=== PATIENT | female | born 2005 | race Caucasian/White ===

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

== ENCOUNTER 2025-05-20 16:41 | Emergency (ER) | payer BC, SELFPAY ==
--- OUTSIDE RECORDS SUMMARY | 2025-05-20 16:44 | XMS_ITS | Clinical Summary ---
Author Organization [facility] s & [facility] Address Formerly [facility], [facility] [place] [address] Care Team Providers Care Drill Doctor Name Role Phone Mala Stoddard Primary Care Provider [phone] Allergies No known active allergies Medications MedicationSigDispense QuantityRefillsLast FilledStart DateEnd DateStatus Ventolin HFA 90 mcg/actuation inhaler Indications:WheezeINHALE 2 PUFFS BY MOUTH EVERY 4 HOURS IF NEEDED FOR COUGHING SPELLS. 18 g 4Active levonorgestrel-ethinyl estrad (0.1mg-20mcg) (ALESSE-28) 0.1-20 mg-mcg tablet Indications:Evaluation regarding contraception optionsTake 1 Tablet by mouth once daily. To be taken in a continuous fashion; have a period every 3 months. 90 Tablet 5Active ondansetron (ZOFRAN ODT) 4 mg disintegrating tablet Indications:PONV (postoperative nausea and vomiting)Place 1-2 Tablets (4-8 mg) on the tongue every 8 hours if needed for Nausea/Vomiting. 12 Tablet 5Active lidocaine (viscous) 2 % liquid Indications:Postoperative painSwish and spit 15 mL by mouth every 4 hours if needed for Sore Throat. 300 mL 5Active acetaminophen 160 mg/5 mL (32 mg/mL) oral solution Indications:Postoperative painTake 20.3 mL (650 mg) by mouth every 4 hours. Max acetaminophen dose: 4000mg in 24 hrs. 800 mL 5Active ibuprofen (Children's Ibuprofen) 100 mg/5 mL (20 mg/mL) suspension Indications:Postoperative painTake 30 mL (600 mg) by mouth every 6 hours. 800 mL 5Active oxyCODONE 5 mg/5 mL (1 mg/mL) solution Indications:Postoperative painTake 5-10 mL (5-10 mg) by mouth every 4 hours if needed for Pain. 190 mL 5Active oxyCODONE 5 mg/5 mL (1 mg/mL) solution Indications:Postoperative painTAKE 5-10 ML (5-10 MG) BY MOUTH EVERY 4 HOURS IF NEEDED FOR PAIN. 210 mL 5Active levonorgestrel-ethinyl estrad (0.1mg-20mcg) (ALESSE-28) 0.1-20 mg-mcg tablet Indications:Evaluation regarding contraception optionsTake 1 Tablet by mouth once daily. 90 Tablet Discontinued(Reorder (E-cancel not sent)) levonorgestrel-ethinyl estrad (0.1mg-20mcg) (ALESSE-28) 0.1-20 mg-mcg tablet Indications:Evaluation regarding contraception optionsTake 1 Tablet by mouth once daily. 90 Tablet Discontinued(*Medication adjustment) predniSONE (DELTASONE) 10 mg tablet Indications:Postoperative painTake 2 Tablets (20 mg) by mouth once daily with a meal for 5 days, THEN 1 Tablet (10 mg) once dailywith a meal for 5 days. 15 Tablet Expired oxyCODONE 5 mg/5 mL (1 mg/mL) solution Indications:Postoperative painTake 5-10 mL (5-10 mg) by mouth every 4 hours if needed for Pain. 400 mL Discontinued oxyCODONE 5 mg/5 mL (1 mg/mL) solution Indications:Postoperative painTake 5-10 mL (5-10 mg) by mouth every 4 hours if needed for Pain. 190 mL Discontinued(*Error/meal cook error) Active Problems ProblemNoted DateDiagnosed DateCervical cancer dktexhtin39/04/2025 Overview (03/26/2025): 02/2025 NIL Plan: Pap due 02/2028 Tonsillar knnoxnxytaj95/01/8577Ucjefyr03/01/6611Tkyrbz37/01/2022Marijuana use 10/21/2021 Encounters DateTypeDepartmentCare WiamYamcqqfqepp23/29/2025Nurse Triage [facility] [address] [place] [address] [address] Mala Stoddard, DO Post-op05/15/2025Refill [facility] [address] [place] [address] Tej Mendoza MD Refill Request (Oxycodone)05/09/2025 6:25 AM COMPUTER SYSTEMS TECHNICIAN - 05/09/2025 11:59 PM COMPUTER SYSTEMS TECHNICIAN Hospital Encounter Tej Mendoza MD 05/09/2025Telephone [facility] [address] [place] [address] Tej Mendoza MD Medication Ciubhorlej36/18/2025Orders Only [facility] [address] [place] [address] Tej Mendoza MD <No scans attached>05/09/2025Sursierra tucsony [facility] [address] [place] [address] [address] [place] [address] Tej Mendoza MD Tonsillectomy 101598906/25/2024 11:25 AM CSTOffice Visit [facility] [address] [place] [address] [address] Mala Stoddard, DO Preoperative Exam (05/09/25 - [facility] - Tonsillectomy - Dr. Mendoza)04/23/20254744Trnjqk34/27/2025 1:15 PM CDTOffice Visit [facility] [address] [place] [address] [address] Priti Blum MD Physical (STD testing)03/17/2025Travelfrom Last 3 Months Immunizations ImmunizationAdministration DatesNext DueDTaP-HIB (TriHIBIT)08/24/2005 WLiQ-VgdI-KJL (Pediarix)2004,2004,2004HIB HbOC (HibTITER) 08/24/2005,2004HIB PRP-T (ActHIB,Hiberix)2004,2004HPV 9 (Gardasil 9)03/18/2025Hepatitis B (Adult)11/28/2024MMR19238Sdkk42/27/2025, 03/21/2015Varicella Ajjmyll0908/24/2005 Social History Tobacco UseTypesPacks/DayYears UsedDateSmoking Tobacco: FormerCigarettes Smokeless Tobacco: Never Tobacco Cessation:Counseling Given: Not Answered Comments:no exposure to second hand smoke Alcohol UseStandard Drinks/WeekCommentsYes0 (1 standard drink = 0.6 oz pure alcohol)occassionalPHQ-2AnswerDate RecordedPHQ-2 TOTAL CBVQS129Social ConnectionsAnswerDate RecordedDo you often feel lonely or isolated from those around you?lcohol UseAnswerDate RecordedHow often do you have a drink containing alcohol?How many drinks containing alcohol do you have on a typical day when you are drinking?How often do you have five or more drinks on one occasion?Financial Resource StrainAnswer Date RecordedDifficulty of Paying Living Ewpconfq210/26/2025Difficulty of Paying Living ExpensesNot on file03/17/2025Food InsecurityAnswerDate RecordedDo you worry your food will run out before you are able to buy more? Transportation NeedsAnswerDate RecordedDoes lack of transportation keep you from medical appointments?Does lack of transportation keep you from work, meetings or getting things that you need?Housing StabilityAnswerDate RecordedWhat is your housing situation today?UtilitiesAnswerDate RecordedDo you have trouble paying for utilities (for example, heat, electricity, water, phone)?CommentsNoSex and Gender InformationValueDate RecordedSex Assigned at BarxuIdnxml64/12/2024 5:59 PM CDT Legal LzaJuvvmg84/14/2013 7:10 AM CSTGender FohrepgxTxalns88/12/2024 5:59 PM CDT Sexual OrientationNot on file Last Filed Vital Signs Vital SignReadingTime TakenCommentsBlood Gjqwexfc450/7004/24/2025 11:34 AM COMPUTER SYSTEMS TECHNICIAN Fimmh950804/24/2025 11:34 AM EJMOckuokrcsta02.8 ??C (98.3 ??F)12/29/2021 9:28 AM CDTRespiratory Lztc822001/21/2022 8:06 AM CDTOxygen Izyflvxyxq58%04/24/2025 11:34 AM CSTInhaled Oxygen Concentration--Xkajew71.4 kg (150 lb 14.4 oz)04/24/2025 11:34 AM CZHCruydx678 cm (5' 1.81)03/18/2025 1:18 PM CDTBody Mass Index27.77 03/18/2025 1:18 PM CDT Plan of Treatment Health MaintenanceDue DateLast DoneCommentsMeningococcal series for age 11-21 (1 - 2-dose series)2020COVID-19 vaccine series ( season)2025 Influenza Vaccine (#1)2025HPV series for age 9-45 (2 - 3-dose series) 5BMI (ht and wt on same day) for age 18+, 08/05/2022, 06/28/2022, Additional history existsChlamydia for age 16-24 , 12/02/2023, 08/10/2023, Additional history exists Depression screening for age 12+, 06/22/2022, 10/21/2021, Additional history existsPap test for age 21-6581Tetanus vdjxopk52/27/360749, 03/21/2015Hepatitis B series for 19+Completed 11/28/2024, 2004, 2004, Additional history existsHIV for age 15-65 Fmrnypswk21/27/2025, 08/10/2023Hepatitis C screening for age 18-79Completed 03/18/2025Pneumococcal series for age 6-49Aged OutNo longer eligible based on patient's age to complete this topic Procedures Procedure NamePriorityDate/TimeAssociated DiagnosisCommentsANTI HCVRoutine 03/18/2025 1:58 PM CDT Screening examination for STI TREPONEMA NMJAQPCIUosmtrm66/27/2025 1:58 PM CDT Screening examination for STI ANTI HIV 1/9Miuwgqk28/27/2025 1:58 PM CDT Screening examination for STI MIDDLEWARE SYSTEMS ARCHITECT THIN PREP PAP SCREEN MDUSYTSvoerdi49/27/2025 1:40 PM CDT Pap smear for cervical cancer screening GC CHLAMYDIA TRACH HZSZQIzmaqqj93/27/2025 1:40 PM CDT Screening examination for STI SURGICAL PROCEDURE (TYPE PROCEDURE DESCRIPTION BELOW)Elective Tonsillar hypertrophy from Last 3 Months Results * TREPONEMA PALLIDUM (03/18/2025 1:58 PM CDT)ComponentValueRef RangeTest Method Analysis TimePerformed AtPathologist SignatureTREPONEMA PALLIDUMNon-Reactive Non-Dmlepdkg71/27/2025 10:55 PM CDTALLUV[facility] Specimen (Source)Anatomical Location / LateralityCollection Method / Volume Collection TimeReceived TimeBloodBLOOD SPECIMEN / UnknownQuest Collect / Hlujyrg6803/18/2025 1:58 PM CDT1 1:58 PM CDT Narrative Authorizing ProviderResult TypeResult StatusHeidi Martita Blum MDSEND OUTSFinal ResultPerforming OrganizationAddressty/State/ZIP CodePhone Number [facility] [address] [place] [address], * ANTI HCV (03/18/2025 1:58 PM CDT)ComponentValueRef RangeTest MethodAnalysis TimePerformed AtPathologist SignatureHEPATITIS C ANTIBODYNON-REACTIVE NON-KALDFTNI70/28/2025 8:53 PM CDTQUEST DIAGNOSTICSComment: HCV antibody was non-reactive. There is no laboratory evidence of HCV infection. In most cases, no further action is required. However, if recent HCV exposure is suspected, a test for HCV RNA (test code 52197) is suggested. For additional information please refer to http://education.[employer]/faq/BQS29y1 (This link is being provided for informational/ educational purposes only.) Specimen (Source)Anatomical Location / LateralityCollection Method / Volume Collection TimeReceived TimeBloodBLOOD SPECIMEN / UnknownQuest Collect / Unknown 03/18/2025 1:58 PM CDT1 1:58 PM CDT Narrative Authorizing ProviderResult TypeResult StatusHeidi Martita Blum MDSEND OUTSFinal ResultPerforming OrganizationAddressCity/State/ZIP CodePhone Number [facility] [address] [address], * ANTI HIV 1/2 (03/18/2025 1:58 PM CDT)ComponentValueRef RangeTest Method Analysis TimePerformed AtPathologist SignatureHIV FINAL INTERPRETATOINHIV YYHSXAYT53/28/2025 8:53 PM CDTQUEST DIAGNOSTICSComment: HIV-1 antigen and HIV-1/HIV-2 antibodies were not detected. There is no laboratory evidence of HIV infection. HIV AG/AB, 4TH IWJPHU-VABNPCEUTFC-FIURLTUL23/28/2025 8:53 PM CDTQUEST DIAGNOSTICSSpecimen (Source)Anatomical Location / LateralityCollection Method / VolumeCollection TimeReceived TimeBloodBLOOD SPECIMEN / UnknownQuest Collect / Vcnnpgb6603/18/2025 1:58 PM CDT1 1:58 PM CDT Narrative Authorizing ProviderResult TypeResult StatusPriti Blum MDSEND OUTSFinal ResultPerforming OrganizationAddressCity/State/ZIP CodePhone Number [facility] [facility] [address] [facility] [place] [address], * MIDDLEWARE SYSTEMS ARCHITECT THIN PREP PAP SCREEN IMAGED (03/18/2025 1:40 PM CDT)ComponentValueRef RangeTest MethodAnalysis TimePerformed AtPathologist SignatureCase Report Gynecologic Cytology Report ? Case: [id number] ? Authorizing Provider: ??Priti Blum ? Collected: ? 03/18/2025 [facility] ? MD Bal ? Ordering Location: ? [facility] ?? Received: ?03/18/2025 [facility] ? Clinic ? First Screen: ?Tiffany Dowling ? Specimen: ?MIDDLEWARE SYSTEMS ARCHITECT ThinPrep Vial Screening, Cervical/Vaginal ? 03/26/2025 9:30 AM [facility] INTERPRETATION/RESULTNEGATIVE FOR INTRAEPITHELIAL LESION OR MALIGNANCY (NIL) (none)03/26/2025 9:30 AM [facility] at 0930 CSTSPECIMEN ADEQUACYSatisfactory for evaluation Endocervical component jizktlr3603/26/2025 9:[address] [facility] LABORATORYDate of LMP105105/26/2024 9:30 AM [facility] LABORATORYLast Pap Ihmvjaelh44/04/2025 9:30 AM [facility] LABORATORYLast Pap ResultFirst Pap/Nzdtkwt6603/26/2025 9:30 AM [facility] LABORATORYAbnormal Pap or Warren Bx in last 5 espfyOx3903/26/2025 9:30 AM [facility] Menstrual StatusRegular Sgdsmoa9703/26/2025 9:[address] [facility] LABORATORYColp Bx Done GitsaLx3303/26/2025 9:30 AM [facility] LABORATORYAdditional InformationNone given03/26/2025 9:30 AM [facility] LABORATORYComment: Cytology is screened at [facility] - [address], [place] [address] and [facility] - [address], [place] [address] and [facility] - [address] [place] [id number] Interpreted at [facility] - [address] [place] [address] Automated NizignJvokrkmhun78/04/2025 9:30 AM [facility] LABORATORYComment:Specimen processed successfully by automated hydrologic modeler device, ThinPrep Imaging System, [employer]NoteThe pap test is a screening technique, not a diagnostic procedure. It is used primarily to screen for squamous cancers and precursor lesions. Published studies have shown that it is subject to both false negative and false positive results. The pap test should not be used as the sole means to diagnose or exclude pre-malignant and malignant lesions. 03/26/2025 9:30 AM CSTWALTHALL [facility]ITALCENTRAL LABORATORYSpecimen (Source)Anatomical Location / LateralityCollection Method / VolumeCollection TimeReceived TimeOther (Cervical/Vaginal)Non-Blood / Oqwlifb4803/18/2025 1:40 PM CDT1 1:57 PM CDT Narrative Authorizing ProviderResult TypeResult StatusJarodidi Martita Blum MD PATHOLOGY/CYTOLOGYFinal ResultPerforming OrganizationAddressCity/State/ZIP Code Phone Number [facility] [address] [place] [address], * GC CHLAMYDIA TRACH PROBE (03/18/2025 1:40 PM CDT)ComponentValueRef RangeTest MethodAnalysis TimePerformed AtPathologist SignatureCHLAMYDIA PROBENegative 03/19/2025 3:44 PM CDTALLUVERNE MED[facility] LABORATORYCENTRAL LABORATORYN GONORRHOEAE PROBENegative 03/19/2025 3:44 PM CDTALCATAWBA VALLEY MEDICAL CENTERCENTRAL LABORATORYSpecimen (Source)Anatomical Location / LateralityCollection Method / VolumeCollection TimeReceived TimeOtherVAGINAL SWAB / UnknownNon-Blood / Heqfosc9903/18/2025 1:40 PM CDT1 2:28 PM CDT Narrative Authorizing ProviderResult TypeResult StatusPriti Blum MD MICROBIOLOGYFinal ResultPerforming OrganizationAddressty/State/ZIP CodePhone Number [facility] [address] [place] [address], from Last 3 Months Insurance * Guarantor: Rosalva Griffiths TypeRelation to PatientDate of PhoneBilling AddressPersonal/[address] [place] [address] * Guarantor: Janine Stephenson TypeRelation to PatientDate of BirthPhone Billing AddressPersonal/OlcjvnIkbonl60/12/1978 [address] [place] [address] Care Teams Team MemberRelationshipSpecialtyStart DateEnd Mala Stoddard DO [address] [place] [address] PCP - GeneralFamily Practice12/02/23
--- NOTE | 2025-05-20 17:08 | ED_ITS ---
HPI - General Adult General Time Seen by Provider: 17:08 Date Seen: 05/20/25 Chief complaint: Post Op Complication Stated complaint: tonsils bleeding after 1.5 wk removal Time Seen by Provider: 05/20/25 17:08 History of Present Illness HPI narrative: 20y/o female who presents with post-tonsillectomy bleeding. Patient underwent tonsillectomy on May 09, Has been doing well, still not eating solid food. She has had a couple small bleeds in the past week but today had more severe bleeding. This seems to be improved now. Pain is well controlled. Related Data Home Medications ?Medication ?Instructions ?Recorded ?Confirmed albuterol sulfate 90 mcg/actuation 2 puff inhalation Q 4H PRN cough 01/16/23 05/20/25 aerosol inhaler (Ventolin HFA) acetaminophen 160 mg/5 mL oral 649.6 mg PO Q4H 5 05/20/25 suspension (Children's Pain and Fever Relief) ibuprofen 100 mg/5 mL oral mg 05/20/25 suspension (Children's Ibuprofen) levonorgestrel-ethinyl estradiol 1 tab PO DAILY 05/20/25 0.1 mg-20 mcg tablet (Vienva) Allergies Allergy/AdvReac Type Severity Reaction Status Date / Time No Known Drug Allergies [facility] Social History Smoking Status: Current every day smoker Do you use any of these nicotine containing products: E-Cigarettes and Vaping Products Second hand tobacco smoke exposure: No How often do you have a drink containing alcohol: 2-3 times a week AUDIT-C Alcohol total score: 3 Non-prescribed substance use: denies use and marijuana (any form) service: No Exam Narrative: Exam Narrative: General: well nourished , NAD Head: Atraumatic and normocephalic ENT: External ears and external nose are normal. Post tonsillectomy changes of the posterior oropharynx. No clot in either post tonsillectomy surgical be d, slight fresh blood on the left but no active hemorrhage Eyes: Conjunctiva clear, pupils are equal reactive, external ocular motions are intact Neck: Full spontaneous range of motion of the neck Lungs: No respiratory distress Musculoskeletal: No tenderness or deformity Neurologic: No gross focal neurologic deficits Skin: No rashes Psych: Mood and affect are appropriate Const: Vital Signs, click to edit/add: Vital Signs - 24 hr 05/20/25 17:09 Temperature 98.8 F Pulse Rate [Pulse Oximeter] 86 Respiratory Rate 18 Blood Pressure [Ri ght Upper Arm] 117/73 Pulse Oximetry 100 Oxygen Delivery Me thod Room Air Course Course ED Course: Additional records reviewed: surgery note from May 03 when patient underwent tonsillectomy at X in the ambulatory surgery center with Dr. Mendoza Additional history from: Family Care impacted by: On oral contraceptives Testing considered but not performed: See ED course Disposition: Patient is postop day 11 status post tonsillectomy presenting with bleeding. She showed me a video of the bleeding from earlier which showed moderate blood from the mouth. No active bleeding now. There is an area fresh blood on the left tonsillar surgical bed, no clots. Care was discussed with Dr. June, ENT who recommends contacting patient's surgeon and topical TXA in the meantime. IV placed, labs and fluids ordered. Reevaluation(s) Time of Reevaluation #1: 17:49 Reevaluation #1: Care discussed with Dr. Kam, agrees with plan for TXA, recommends IV TXA as well as neb. If remains stable, can be discharged. Clinic will contact her for follow-up. Time of Reevaluation #2: 18:05 Reevaluation #2: Patient rechecked, continues to have no active bleeding. she reports she has been off her control for 2 weeks. We discussed risks and benefits of TXA, given that she has been off control for 2 weeks I think risk of thrombus with the combination is unlikely and so IV TXA will be given per Dr. Kam recommendation. Labs independently interpreted by me with normal CBC. Time of Reevaluation #3: 19:31 Reevaluation #3: Patient recheck, remains stable in the emergency department with no further bleeding. Posterior pharynx reexamined and no stigmata of recent bleed noted. Discussed return to emergency department precautions. Patient will be observed in the department for another 30 minutes and anticipate discharge if stable. Vital Signs Vital signs: Initial Vital Signs Temperature 98.8 F 05/20/25 17:09 Temperature Source Temporal Artery Scan 05/20/25 17:09 Pulse Rate 86 12/29/25 17:09 Respiratory Rate 18 05/20/25 17:09 Blood Pressure 117/73 05/20/25 17:09 Blood Pressure Mean 87 05/20/25 17:09 Blood Pressure Position Sitting 05/20/25 17:09 Pulse Oximetry 100 05/20/25 17:09 Oxygen Delivery Method Room Air 05/20/25 17:09 Vital Signs Temperature 98.8 F 05/20/25 17:09 Pulse Rate 86 05/20/25 17:09 Respiratory Rate 18 05/20/25 17:09 Blood Pressure 117/73 05/20/25 17:09 Pulse Oximetry 100 05/20/25 17:09 Oxygen Delivery Method Room Air 05/20/25 17:09 Temperature 98.8 F 05/20/25 17:09 Pulse Rate 86 05/20/25 17:09 Respiratory Rate 18 05/20/25 17:09 Blood Pressure 117/73 05/20/25 17:09 Pulse Oximetry 100 05/20/25 17:09 Oxygen Delivery Method Room Air 05/20/25 17:09 Medications Administered Medications: Discontinued Medications Generic Name Dose Route Start Last Admin Trade Name Freq PRN Reason Stop Dose Admin Sodium Chloride 1,000 mls @ 1,000 mls/hr 05/20/25 17:45 05/20/25 18:43 0.9 % Sodium Chloride 1000 Ml IV 05/20/25 18:44 Infused .Q1H REBECA Infusion Tranexamic Acid 500 mg 05/20/25 17:34 05/20/25 17:53 Tranexamic Acid 100 Mg/Ml Inj NEB 05/20/25 17:35 500 mg ONCE ONE Administration Tranexamic Acid 1,000 mg 05/20/25 18:08 05/20/25 18:32 Tranexamic Acid 100 Mg/Ml Inj IV 05/20/25 18:09 1,000 mg ONCE ONE Administration Medical Decision Making Lab Data Labs: Lab Results 05/20/25 Range/Units 17:48 WBC 6.60 (4.50-11.00) K/uL RBC 4.01 (4.00-5.20) m/uL Hgb 12.6 (12.0-16.0) gm/dL Hct 36.5 (33.0-51.0) % MCV 91 (80-100) fL MCH 31 (26-34) pg MCHC 35 (32-36) gm/dL RDW Coeff of Luca 11.1 L (11.5-15.5) % Plt Count 384 (140-440) K/uL Neut % (Auto) 67.0 (42.0-72.0) % Lymph % (Auto) 23.2 (20-44) % [place] % (Auto) 6.4 (0.0-11.0) % Eos % (Auto) 2.0 (0.0-7.0) % Baso % (Auto) 0.8 (0.0-3.0) % Neut # (Auto) 4.43 (1.7-7.0) K/uL Lymph # (Auto) 1.53 (0.90-2.90) K/uL [place] # (Auto) 0.40 (0.00-0.90) K/UL Eos # (Auto) 0.13 (0.00-0.50) K/uL Baso # (Auto) 0.05 (0.00-0.30) K/uL Abs Immat Gran (auto) 0.04 (0.00-0.30) K/uL Imm/Tot Granulo (auto) 0.6 % Blood Type O Positive Antibody Screen NEGATIVE Discharge Plan Discharge Clinical Impression: Post-tonsillectomy hemorrhage Patient Disposition: Home w/ Parent or Adult Condition: Stable Instructions: Tonsillectomy (DC) Additional Instructions: Continue liquid diet for now if bleeding recurs, gently gargle or swish with cold water. If bleeding lasts more than 10 minutes or is severe, return to the emergency department. Dr. Mendoza's office will call you in the morning to schedule follow-up appointment Activity Level: No Restrictions Discharge Diet: Full Liquid Prescriptions: No Action albuterol sulfate [Ventolin HFA] 90 mcg/actuation HFA aerosol inhaler 2 puff INHALATION Q4H PRN (Reason: cough) acetaminophen [Children's Pain-Fever Relief] 160 mg/5 mL suspension 649.6 mg PO Q4H levonorgestrel-ethinyl estrad [Vienva] 0.1-20 mg-mcg tablet 1 tab PO DAILY ibuprofen [Children's Ibuprofen] 100 mg/5 mL suspension Patient Comments: TAKE 30 ML (600 MG) BY MOUTH EVERY 6 HOURS. Follow Up/Referrals: Provider,Not a Local [Non-Staff, Family Practice] Stand Alone Forms: [email or web address] Info Instructions
[2025-05-20 17:09] VITALS: BP 117/73; PULSE 86; RESP 18; TEMP 37.1; O2SAT 100; BMI 27.6
[2025-05-20] MEDS: TRANEXAMIC ACID 100 MG/ML INJ 500 MG NEB (17:53)
[2025-05-20 17:55] LABS: Hematocrit* 36.5 % (33.0-51.0); Hemoglobin* 12.6 gm/dL (12.0-16.0); Immature Granulocytes Abs Auto 0.04 K/uL (0.00-0.30); Immature Granulocytes Pct Auto 0.6 %; Lymphocytes Absolute Auto 1.53 K/uL (0.90-2.90); Mean Corpuscular HGB Conc 35 gm/dL (32-36); Mean Corpuscular Hemoglobin 31 pg (26-34); Mean Corpuscular Volume 91 fL (80-100); RDW Coefficient of Variation % 11.1 % (11.5-15.5); Red Blood Count* 4.01 m/uL (4.00-5.20); White Blood Count* 6.60 K/uL (4.50-11.00)
[2025-05-20 18:01] LABS: Slide Review Reflex No
[2025-05-20 18:30] VITALS: BP 114/78; PULSE 68; RESP 18; O2SAT 98
[2025-05-20] MEDS: TRANEXAMIC ACID 100 MG/ML INJ 1000 MG IV (18:32)
[2025-05-20 19:00] VITALS: BP 109/65
== END 2025-05-20 20:07 | disposition home or self-care (01) ==
PROVIDERS: Emergency Provider Family Medicine; PCP Family Medicine
DX: J95.830 Postprocedural hemorrhage of a respiratory system organ or structure following a respiratory system procedure (principal)
CPT/HCPCS: 36415; 85025; 86850; 86900; 86901; 96360; 99284; J7030

== ENCOUNTER 2025-05-21 00:12 | Day surgery (SDC) | payer BC, SELFPAY ==
[2025-05-21] VITALS (15 sets, daily range): BP systolic 113–142; BP diastolic 61–84; PULSE 70–123; RESP 16–18; TEMP 36.5–37.4; O2SAT 95–98; BMI 27.6
--- OUTSIDE RECORDS SUMMARY | 2025-05-21 00:15 | XMS_ITS | Clinical Summary ---
Author Organization [employer] [facility] Address [facility] [place] [address] Care Team Providers Care Information Technology Account Manager Name Role Phone Mala Stoddard Primary Care Provider [phone] Allergies No known active allergies Medications MedicationSigDispense [...] hours if needed for Pain. 190 mL Discontinued(*Error/entry level account representative error) Active Problems ProblemNoted DateDiagnosed DateCervical cancer /04/2025 Overview (03/26/2025): 02/2025 NIL Plan: Pap due 02/2028 Tonsillar aozpxgouzkq97/01/0007Luvalsg04/01/0267Rhmsnl03/01/2022Marijuana use 10/21/2021 Encounters DateTypeDepartmentCare MddbLvzugtefdxx30/29/2025Telephone [facility] ENT and Audiology [facility] [address] [place] [phone] Venkatesh Kam MD 05/20/2025Nurse Triage [facility] [address] [facility] [place] [address] Mala Stoddard, Post-op05/15/2025Refill [facility] [address] [place] [address] Tej Mendoza MD Refill Request (Oxycodone)05/09/2025 6:25 AM ELECTRONIC TECHNICIAN - 05/09/2025 11:59 PM ELECTRONIC TECHNICIAN Hospital Encounter Tej Mendoza MD 05/09/2025Telephone [facility] [address] [place] [address] Tej Mendoza MD Medication Yfvcobribb91/18/2025Orders Only [facility] [address] [place] [address] [address] Tej Mendoza MD <No scans attached>05/09/2025Surgery [facility] [address] [facility] [address] [place] [address] Tej Mendoza MD Tonsillectomy 241597106/25/2024 11:25 AM CSTOffice Visit [facility] [address] [place] [address] Mala Stoddard, DO Preoperative Exam (05/09/25 - [facility] - Tonsillectomy - Dr. Mendoza)04/23/20252483Kqpeew94/27/2025 1:15 PM CDTOffice Visit [facility] [address] [place] [address] Priti Blum MD Physical (STD testing)03/17/2025Travelfrom Last 3 Months Immunizations ImmunizationAdministration DatesNext DueDTaP-HIB (TriHIBIT)08/24/2005 VTbG-IdzH-SLN (Pediarix)2004,2004,2004HIB HbOC (HibTITER) 08/24/2005,2004HIB PRP-T (ActHIB,Hiberix)2004,2004HPV 9 (Gardasil 9)03/18/2025Hepatitis B (Adult)11/28/2024MMR15355Zyvx69/27/2025, 03/21/2015Varicella Pbphqqt4008/24/2005 Social History Tobacco UseTypesPacks/DayYears UsedDateSmoking Tobacco: FormerCigarettes Smokeless Tobacco: Never Tobacco Cessation:Counseling Given: Not Answered Comments:no exposure to second hand smoke Alcohol UseStandard Drinks/WeekCommentsYes0 (1 standard drink = 0.6 oz pure alcohol)occassionalPHQ-2AnswerDate RecordedPHQ-2 TOTAL AWPWD998Social ConnectionsAnswerDate RecordedDo you often feel lonely or isolated from those around you?lcohol UseAnswerDate RecordedHow often do you have a drink containing alcohol?How many drinks containing alcohol do you have on a typical day when you are drinking?How often do you have five or more drinks on one occasion?Financial Resource StrainAnswer Date RecordedDifficulty of Paying Living Uaqbswdj526/26/2025Difficulty of Paying Living ExpensesNot on file03/17/2025Food InsecurityAnswerDate [...] phone)?CommentsNoSex and Gender InformationValueDate RecordedSex Assigned at DocbkMmmiad86/12/2024 5:59 PM CDT Legal RerCgwohz39/14/2013 7:10 AM CSTGender ZkcrxyjpHpynxp19/12/2024 5:59 PM CDT Sexual OrientationNot on file Last Filed Vital Signs Vital SignReadingTime TakenCommentsBlood Cmwvobmf701/7004/24/2025 11:34 AM ELECTRONIC TECHNICIAN Kcxcz095804/24/2025 11:34 AM YJQQqszjfhhfrk43.8 ??C (98.3 ??F)12/29/2021 9:28 AM CDTRespiratory Vspc924001/21/2022 8:06 AM CDTOxygen Rpwxnwyhis38%04/24/2025 11:34 AM CSTInhaled Oxygen Concentration--Olltjf35.4 kg (150 lb 14.4 oz)04/24/2025 11:34 AM AAFPlckan730 cm (5' 1.81)03/18/2025 1:18 PM CDTBody Mass Index27.77 03/18/2025 1:18 PM CDT Plan of Treatment Health MaintenanceDue DateLast DoneCommentsMeningococcal series for age 11-21 (1 - 2-dose series)2020COVID-19 vaccine series (2024- season)2025 Influenza Vaccine (#1)2025HPV series for age 9-45 (2 - 3-dose series) 5BMI (ht and wt on same day) for age 18+, 08/05/2022, 06/28/2022, Additional history existsChlamydia for age 16-24 , 12/02/2023, 08/10/2023, Additional history exists Depression screening for age 12+, 06/22/2022, 10/21/2021, Additional history existsPap test for age 21-65Tetanus visjivf54/27/065859, 03/21/2015Hepatitis B series for 19+Completed 11/28/2024, 2004, 2004, Additional history existsHIV for age 15-65 Rvnsnlmav85/27/2025, 08/10/2023Hepatitis C screening for age 18-79Completed 03/18/2025Pneumococcal series for age 6-49Aged OutNo longer eligible based on patient's age to complete this topic Procedures Procedure NamePriorityDate/TimeAssociated DiagnosisCommentsANTI HCVRoutine 03/18/2025 1:58 PM CDT Screening examination for STI TREPONEMA ZENETTPWQxvdvhv37/27/2025 1:58 PM CDT Screening examination for STI ANTI HIV 1/4Nuodmps99/27/2025 1:58 PM CDT Screening examination for STI MEDICAL TECHNOLOGIST HEMATOLOGY THIN PREP PAP SCREEN AFPZJURwwhlne44/27/2025 1:40 PM CDT Pap smear for cervical cancer screening GC CHLAMYDIA TRACH JNSRABoogyos00/27/2025 1:40 PM CDT Screening examination for STI SURGICAL PROCEDURE (TYPE PROCEDURE DESCRIPTION BELOW)Elective Tonsillar hypertrophy from Last 3 Months Results * TREPONEMA PALLIDUM (03/18/2025 1:58 PM CDT)ComponentValueRef RangeTest Method Analysis TimePerformed AtPathologist SignatureTREPONEMA PALLIDUMNon-Reactive Non-Dfsekpnd54/27/2025 10:55 PM [facility] Specimen (Source)Anatomical Location / LateralityCollection Method / Volume Collection TimeReceived TimeBloodBLOOD SPECIMEN / UnknownQuest Collect / Lbakqlo3903/18/2025 1:58 PM CDT1 1:58 PM CDT Narrative Authorizing ProviderResult TypeResult StatusHeidi Martita Blum [facility] OUTSFinal ResultPerforming OrganizationAddRiddle Hospitalty/State/ZIP CodePhone Number [facility] [address] [place] [address], * ANTI HCV (03/18/2025 1:58 PM CDT)ComponentValueRef RangeTest MethodAnalysis TimePerformed AtPathologist SignatureHEPATITIS C ANTIBODYNON-REACTIVE NON-WXUHRBRJ66/28/2025 8:53 PM CDTQUEST DIAGNOSTICSComment: HCV antibody was non-reactive. There is no laboratory evidence of HCV infection. In most cases, no further action is required. However, if recent HCV exposure is suspected, a test for HCV RNA (test code 10282) is suggested. For additional information please refer to http://education.Kid$Shirt/faq/SLS05d3 (This link is being provided for informational/ educational purposes only.) Specimen (Source)Anatomical Location / LateralityCollection Method / Volume Collection TimeReceived TimeBloodBLOOD SPECIMEN / UnknownQuest Collect / Unknown 03/18/2025 1:58 PM CDT1 1:58 PM CDT Narrative Authorizing ProviderResult TypeResult StatusHestacy Blum [facility] OUTSFinal ResultPerforming OrganizationAddressty/State/ZIP CodePhone Number [facility] [address] [address], [place] [phone] * ANTI HIV 1/2 (03/18/2025 1:58 PM CDT)ComponentValueRef RangeTest Method Analysis TimePerformed AtPathologist SignatureHIV FINAL INTERPRETATOINHIV KYXXMRRY99/28/2025 8:53 PM CDTQUEST DIAGNOSTICSComment: HIV-1 antigen and HIV-1/HIV-2 antibodies were not detected. There is no laboratory evidence of HIV infection. HIV AG/AB, 4TH RSXSJY-MNKGJLTCKPU-OOXRSRHZ23/28/2025 8:53 PM CDTQUEST DIAGNOSTICSSpecimen (Source)Anatomical Location / LateralityCollection Method / VolumeCollection TimeReceived TimeBloodBLOOD SPECIMEN / UnknownQuest Collect / Xvlmxqb0803/18/2025 1:58 PM CDT1 1:58 PM CDT Narrative Authorizing ProviderResult TypeResult StatusHestacy Blum [facility] OUTSFinal ResultPerforming OrganizationAddressCity/State/ZIP CodePhone Number [facility] [address] [place] [address], * MEDICAL TECHNOLOGIST HEMATOLOGY THIN PREP PAP SCREEN IMAGED (03/18/2025 1:40 PM CDT)ComponentValueRef RangeTest MethodAnalysis TimePerformed AtPathologist SignatureCase Report Gynecologic Cytology Report ? Case: [id number] ? Authorizing Provider: ??Priti Blum ? Collected: ? 03/18/2025 1340 ? MD Bal ? Ordering Location: ? [facility] ?? Received: ?03/18/2025 1357 ? Clinic ? First Screen: ?Tiffany Dowling ? Specimen: ?MEDICAL TECHNOLOGIST HEMATOLOGY ThinPrep Vial Screening, Cervical/Vaginal ? 03/26/2025 9:30 AM [facility] INTERPRETATION/RESULTNEGATIVE FOR INTRAEPITHELIAL LESION OR MALIGNANCY (NIL) (none)03/26/2025 9:30 AM [facility] at 0930 CSTSPECIMEN ADEQUACYSatisfactory for evaluation Endocervical component hqaaqoq3503/26/2025 9:30 AM [facility]- CENTRAL LABORATORYDate of LMP105105/26/2024 9:30 AM [facility] LABORATORYLast Pap Rkofnmjqy63/04/2025 9:30 AM [facility] LABORATORYLast Pap ResultFirst Pap/Hawcsnf5803/26/2025 9:30 AM [facility]-CENTRAL LABORATORYAbnormal Pap or Sylva Bx in last 5 mtbpoCi8403/26/2025 9:30 AM [facility] Menstrual StatusRegular Xznwxvv7903/26/2025 9:30 AM [facility]AL LABORATORYColp Bx Done BniunBl3203/26/2025 9:30 AM [facility] LABORATORYAdditional InformationNone given03/26/2025 9:30 AM [facility]ORATORYComment: Cytology is screened at [facility] - [address], [place] [address] and [facility] - [address], [place] [address] and [facility] - [address] [place] [address] Interpreted at [facility] - [address] [place], [place] [address] [address] Automated VljhruFfhlqyjmze57/04/2025 9:30 AM [facility] LABORATORYComment:Specimen processed successfully by automated government affairs manager device, Jing-Jin Electric TechnologiesPrep Imaging System, [employer].NoteThe pap test is a screening technique, not a diagnostic procedure. It is used primarily to screen for squamous cancers and precursor lesions. Published studies have shown that it is subject to both false negative and false positive results. The pap test should not be used as the sole means to diagnose or exclude pre-malignant and malignant lesions. 03/26/2025 9:30 AM [facility] LABORATORYSpecimen (Source)Anatomical Location / LateralityCollection Method / VolumeCollection TimeReceived TimeOther (Cervical/Vaginal)Non-Blood / Atmfgjk7903/18/2025 1:40 PM CDT1 1:57 PM CDT Narrative Authorizing ProviderResult TypeResult StatusJarodidi Martita Blum MD PATHOLOGY/CYTOLOGYFinal ResultPerforming OrganizationAddressCity/State/ZIP Code Phone Number [facility] [address] [place] [address], * GC CHLAMYDIA TRACH PROBE (03/18/2025 1:40 PM CDT)ComponentValueRef RangeTest MethodAnalysis TimePerformed AtPathologist SignatureCHLAMYDIA PROBENegative 03/19/2025 3:44 PM CDTIPPAH COUNTY [facility] LABORATORYN GONORRHOEAE PROBENegative 03/19/2025 3:44 PM CDTIPPAH COUNTY [facility] LABORATORYSpecimen (Source)Anatomical Location / LateralityCollection Method / VolumeCollection TimeReceived TimeOtherVAGINAL SWAB / UnknownNon-Blood / Bseskex3303/18/2025 1:40 PM CDT1 2:28 PM CDT Narrative Authorizing ProviderResult TypeResult StatusPriti Blum MD MICROBIOLOGYFinal ResultPerforming OrganizationAddressCity/State/ZIP CodePhone Number [facility] [address] [address], from Last 3 Months Insurance * Guarantor: Rosalva Griffiths PAccount TypeRelation to PatientDate of PhoneBilling AddressPersonal/K[address] [place] [address] * Guarantor: Janine Stephenson LAccount TypeRelation to PatientDate of BirthPhone Billing AddressPersonal/IdecclMwclcs41/12/1978 [address] [place] [address] Care Teams Team MemberRelationshipSpecialtyStart DateEnd Mala Stoddard DO [address] [facility] [place] [id number] PCP - GeneralFamily Practice12/02/23
--- NOTE | 2025-05-21 01:20 | ED_ITS ---
HPI - General Adult General Chief complaint: Ear/Nose/Throat Problem Stated complaint: tonsillectomy 05/09/bleeding Time Seen by Provider: 05/21/25 00:49 Source: patient Mode of arrival: ambulatory Limitations: no limitations History of Present Illness HPI narrative: 20-year-old female who underwent tonsillectomy on 05/09/2025 through erendir[facility]a presents for the 2nd time in 24 hours with bleeding from the throat. Patient was given IV TXA as well as topical TXA in the ED when she visited this afternoon. Bleeding did cease until about 11:45 p.m.. Bleeding started moderately, has slowed somewhat now but is persistently bleeding. No fevers, no hematemesis, no bloody stools. She does not take any anticoagulants. She has been off of her control for the last couple of weeks, LMP was 05/09/2025. Denies chance of . No dizziness or lightheadedness. Has been using Tylenol for pain control. Has tolerated clear liquids, less clear liquid ingestion was 11:30 p.m.. She took down probably about 8-10 oz of plain water. Has not been able to tolerate any solid foods since surgery. No history of bleeding or blood clotting disorders. No history of anesthesia complications. No history of neurological disorders, cardiovascular disorders or breathing issues. Other than the episode of bleeding, unchanged from this afternoon. These notes are reviewed. Is also documented in her surgeon's notes that since there are no beds available at his primary hospital, Dr. June would cover in the need of surgical intervention. These notes were reviewed, note from earlier today is reviewed as well. No major long-term health problems, surgical procedure 05/09 as documented above. Recurrent long-term medications. No allergies. ROS notable for the bleeding from the throat, otherwise benign times 12 systems. Related Data Home Medications ?Medication ?Instructions ?Recorded ?Confirmed albuterol sulfate 90 mcg/actuation 2 puff inhalation Q 4H PRN cough 01/16/23 05/20/25 aerosol inhaler (Ventolin HFA) acetaminophen 160 mg/5 mL oral 649.6 mg PO Q4H 5 05/20/25 suspension (Children's Pain and Fever Relief) ibuprofen 100 mg/5 mL oral mg 05/20/25 suspension (Children's Ibuprofen) levonorgestrel-ethinyl estradiol 1 tab PO DAILY 05/20/25 0.1 mg-20 mcg tablet (Vienva) Allergies Allergy/AdvReac Type Severity Reaction Status Date / Time No Known Drug Allergies Allergy Verified 05/20/25 17:24 [facility] Social History Smoking Status: Current every day smoker Do you use any of these nicotine containing products: E-Cigarettes and Vaping Products Second hand tobacco smoke exposure: No How often do you have a drink containing alcohol: 2-3 times a week AUDIT-C Alcohol total score: 3 Non-prescribed substance use: denies use and marijuana (any form) service: No Exam Const: Vital Signs, click to edit/add: Vital Signs - 24 hr 05/21/25 00:18 Temperature 99.4 F Pulse Rate [Pulse Oximeter] 88 Respiratory Rate 18 Blood Pressure [Ri ght Upper Arm] 124/84 Pulse Oximetry 98 Oxygen Delivery Me thod Room Air Documenting provider has reviewed patient's vital signs: yes Common normals: no apparent distress and alert General appearance: cooperative and well kempt HENMT: Common normals: normocephalic and moist oral mucous membranes Head and scalp: normocephalic Other: Oozing of blood from the inferior left tonsillar surgical bed. Right side appears to be healing normally. The superior aspect of the left tonsillar bed appears normal as well. Tongue, dentition and remainder of oral mucosa appear normal. Eye: Common normals: conjunctivae normal General eye: normal appearance of both eyes Conjunctiva: conjunctiva(e) normal Neck & C-Spine: General: normal visual inspection Resp: Common normals: normal respiratory effort and clear to auscultation bilaterally Effort & inspection: able to speak in complete sentences Auscultation: clear to auscultation bilaterally Cardio: Common normals: regular rate, regular rhythm, S1 normal heart sound, S2 normal heart sound and no murmurs Rate: regular rate Rhythm: regular rhythm Heart sounds: S1 normal and S2 normal GI: Common normals: Normal to inspection, nondistended, normoactive bowel sounds present, soft to palpation, non-tender, no hepatosplenomegaly and no m asses Palpation: soft and no hepatosplenomegaly Extremity: Common normals: normal to inspection and normal capillary refill Neuro: Common normals: moves all extremities Sensorium/orientation: alert Motor exam: strength 5/5 throughout and no movement abnormalities noted Psych: Common normals: speech normal Appearance: well kempt Attitude: engaged Activity/motor behavior: appropriate eye contact Speech: normal speech Mood and affect: euthymic mood Insight: insight good Judgement: judgment good Skin: Common normals: no rashes or lesions noted General skin exam: no rashes or lesions noted Course Course ED Course: 20-year-old female with post tonsillectomy bleeding. Initial improvement after IV TXA and topical TXA treatment but unfortunately return of bleeding. Bleeding has slowed since her time in the ED but is still lightly oozing. I have spoken with Dr. June. At this time, I do not think that I can cauterize the affected area with silver nitrate here in the ED because it is a little more on the inferior tonsillar bed. I do not think that topical TXA again will be effective. She has had several episodes of bleeding now since surgery. He is recommending cauterization in the operating room. I do defer to his judgment, but this does seem most appropriate. Patient is low risk for anesthesia. test ordered. Type and screen, CBC, basic labs. We will insert IV. 500 mL normal saline bolus. Await surgical management. Reevaluation(s) Reevaluation #1: Update: Spoke with ENT on-call, Dr. June. He will come in to assess patient but we anticipate cauterization in the OR. Patient is medically cleared for anesthesia at this time no additional perioperative recommendations. Vital Signs Vital signs: Initial Vital Signs Temperature 99.4 F 05/21/25 00:18 Temperature Source Temporal Artery Scan 05/21/25 00:18 Pulse Rate 88 05/21/25 00:18 Respiratory Rate 18 05/21/25 00:18 Blood Pressure 124/84 05/21/25 00:18 Blood Pressure Mean 97 05/21/25 00:18 Blood Pressure Position Sitting 05/21/25 00:18 Pulse Oximetry 98 05/21/25 00:18 Oxygen Delivery Method Room Air 05/21/25 00:18 Vital Signs Temperature 99.4 F 05/21/25 00:18 Pulse Rate 88 05/21/25 00:18 Respiratory Rate 18 05/21/25 00:18 Blood Pressure 124/84 12/30/25 00:18 Pulse Oximetry 98 05/21/25 00:18 Oxygen Delivery Method Room Air 05/21/25 00:18 Temperature 99.4 F 05/21/25 00:18 Pulse Rate 88 05/21/25 00:18 Respiratory Rate 18 05/21/25 00:18 Blood Pressure 124/84 05/21/25 00:18 Pulse Oximetry 98 05/21/25 00:18 Oxygen Delivery Method Room Air 05/21/25 00:18 Medical Decision Making Lab Data Lab results reviewed: Yes I reviewed the patient's lab results Lab results narrative: Labs look reassuring other than a 1 point hemoglobin drop, might be somewhat dilutional as patient has received IV fluids. Labs: Lab Results 05/21/25 05/21/25 Range/Units 01:30 01:45 WBC 9.16 (4.50-11.00) K/uL RBC 3.73 L (4.00-5.20) m/uL Hgb 11.8 L (12.0-16.0) gm/dL Hct 33.9 (33.0-51.0) % MCV 91 (80-100) fL MCH 32 (26-34) pg MCHC 35 (32-36) gm/dL RDW Coeff of Luca 11.4 L (11.5-15.5) % Plt Count 393 (140-440) K/uL Neut % (Auto) 65.9 (42.0-72.0) % Lymph % (Auto) 25.5 (20-44) % [place] % (Auto) 6.3 (0.0-11.0) % Eos % (Auto) 1.6 (0.0-7.0) % Baso % (Auto) 0.4 (0.0-3.0) % Neut # (Auto) 6.02 (1.7-7.0) K/uL Lymph # (Auto) 2.34 (0.90-2.90) K/uL [place] # (Auto) 0.60 (0.00-0.90) K/UL Eos # (Auto) 0.15 (0.00-0.50) K/uL Baso # (Auto) 0.04 (0.00-0.30) K/uL Abs Immat Gran (auto) 0.03 (0.00-0.30) K/uL Imm/Tot Granulo (auto) 0.3 % Sodium 138 (135-149) mmol/L Potassium 3.6 (3.6-5.1) mmol/L Chloride 105 (96-114) mmol/L Carbon Dioxide 24 (20-32) mmol/L Anion Gap 9 (7-15) mEq/L BUN 11 (5-24) mg/dL Creatinine 0.7 (0.5-1.5) mg/dL Estimated Creat Clear 95.93 Estimated GFR 126 ml/min Glucose 98 (60-115) mg/dL Calcium 9.1 (8.4-10.6) mg/dL Urine HCG, Qual Negative (Negative) Discharge Plan Discharge Clinical Impression: Post-tonsillectomy hemorrhage Patient Disposition: XFER to OR Follow Up/Referrals: Mala Stoddard DO [Primary Care Provider, [facility]]
[2025-05-21 01:39] LABS: Ur HCG Qualitative* Negative (Negative)
[2025-05-21 01:57] LABS: Hematocrit* 33.9 % (33.0-51.0); Hemoglobin* 11.8 gm/dL (12.0-16.0); Immature Granulocytes Abs Auto 0.03 K/uL (0.00-0.30); Immature Granulocytes Pct Auto 0.3 %; Lymphocytes Absolute Auto 2.34 K/uL (0.90-2.90); Mean Corpuscular HGB Conc 35 gm/dL (32-36); Mean Corpuscular Hemoglobin 32 pg (26-34); Mean Corpuscular Volume 91 fL (80-100); RDW Coefficient of Variation % 11.4 % (11.5-15.5); Red Blood Count* 3.73 m/uL (4.00-5.20); White Blood Count* 9.16 K/uL (4.50-11.00)
[2025-05-21 02:00] LABS: Slide Review Reflex No
[2025-05-21 02:13] LABS: Chloride* 105 mmol/L (96-114); Potassium* 3.6 mmol/L (3.6-5.1); Sodium* 138 mmol/L (135-149)
[2025-05-21 02:16] LABS: Anion Gap 9 mEq/L (7-15); Blood Urea Nitrogen* 11 mg/dL (5-24); Calcium* 9.1 mg/dL (8.4-10.6); Carbon Dioxide* 24 mmol/L (20-32); Creatinine* 0.7 mg/dL (0.5-1.5); Est. Creatinine Clearance* 95.93; Estimated Glomerular Filt Rate 126 ml/min; Glucose* 98 mg/dL (60-115)
[2025-05-21] MEDS: 0.9 % SODIUM CHLORIDE 500 ML 500 ML IV (02:23)
[2025-05-21] MEDS: LACTATED RINGERS 1000 ML 1,000 ML 125 ML IV (02:36)
[2025-05-21] MEDS: 0.9 % SODIUM CHL 20 ml vial INJECTION (02:50)
--- NOTE | 2025-05-21 03:28 | P.ANES_ITS ---
Anesthesia Charges Start Date/Time Anesthesia Start Date: 05/21/25 Anesthesia Start Time: 02:36 Stop Date/Time Anesthesia Stop Date: 05/21/25 Anesthesia Stop Time: 03:26 Summary Emergency: GAS COMPRESSOR OPERATOR Coding CPT Codes CPT Codes: ANESTH PROCEDURE ON MOUTH - 29942 ([id number]) P1 - NORMAL HEALTHY PATIENT, QZ - GAS COMPRESSOR OPERATOR SV W/O RANGE MANAGER BY Additional Codes: Summary - Emergency: GAS COMPRESSOR OPERATOR ([id number])
--- NOTE | 2025-05-21 03:28 | W.ANESCHARGE ---
Anesthesia Charges Start Date/Time Anesthesia Start Date: 05/21/25 Anesthesia Start Time: 02:36 Stop Date/Time Anesthesia Stop Date: 05/21/25 Anesthesia Stop Time: 03:26 Summary Emergency: ORACLE FUSION MIDDLEWARE DEVELOPER Coding CPT Codes CPT Codes: ANESTH PROCEDURE ON MOUTH - 73288 ([id number]) P1 - NORMAL HEALTHY PATIENT, QZ - ORACLE FUSION MIDDLEWARE DEVELOPER SV W/O LABORATORY MANAGER BY Additional Codes: Summary - Emergency: ORACLE FUSION MIDDLEWARE DEVELOPER ([id number])
[2025-05-21] MEDS: ACETAMINOPHEN 160 MG/5 ML CUP PO (05:12)
--- NOTE | 2025-05-21 06:09 | CRLHL7_ITS ---
For Patients: As a result of the Century Cures Act, medical imaging exams and procedure reports are released immediately into your electronic medical record. You may view this report before your referring provider. If you have questions, please contact your health care provider. INDICATION: Chest pain. TECHNIQUE: Chest 1 views. COMPARISON: None. FINDINGS: Cardiovasculature and mediastinum: Heart size is normal. Unremarkable mediastinum. Lungs and pleural spaces: Lungs are clear. No pneumothorax or pleural effusion. Bones and soft tissues: No significant findings. IMPRESSION: No acute findings. Dictated by Yoly Buenrostro MD @ 05/21/2025 7:05:56 AM (Electronically Signed)
--- NOTE | 2025-05-21 07:06 | PC.NURSE ---
Pt reported 4-6/10 chest pain and 5-7/10 pain in throat, RN took EKG showing Normal Sinus Rhythm, updated MD June, orders given to get chest x-ray.. PRN oxycodone and Tylenol given for pain in throat and chest. VSS. Pt is up SBA with IV pole, voiding, and tolerating a clear liquid diet.
--- NOTE | 2025-05-21 09:35 | PC.NURSE ---
Discharge: Patient pleasant and cooperative. Patient vitally stable, lungs clear, BS WNL, IV removed, catheter intact. Patient rates throat pain 5/10, oxy given once. Patient taking in fluids. Discharge paperwork was reviewed with previous nurse. Patient had no further questions regarding discharge. Patient has story writer observe throat, cauterized area is scabbing. Patient left the floor at 0844 by foot to home with belongings and boyfriend.
== END 2025-05-21 08:44 | disposition home or self-care (01) ==
LOC: ED 01:51 → MEDSURG 02:52 → ED 02:55 → MEDSURG 02:55
PROVIDERS: Emergency Provider Family Medicine; PCP Family Medicine; Visit Provider Otolaryngology
PROC: (CPT 42960; principal; 2025-05-21 02:15)
DX: J95.830 Postprocedural hemorrhage of a respiratory system organ or structure following a respiratory system procedure (principal)
CPT/HCPCS: 42962; 00170; 36415; 71045; 80048; 81025; 85025; 86850; 86900; 86901; 99140; 99284; 99285; A9270; J0169; J0330; J1100; J2405; J2704; J3010; J7030; J7120